=== PATIENT | male | born 1980 | race Caucasian/White ===

== ENCOUNTER 2017-11-10 09:02 | Observation (INO) ==
[2017-11-10] MEDS ORDERED: Aspirin 81 MG TAB.CHEW PO ONE (09:08)
--- NOTE | 2017-11-10 09:12 | Emergency Department Note ---
Disposition Clinical Impression: Chest pain Qualifiers: Chest pain type: unspecified Qualified Code(s): R07.9 - Chest pain, unspecified Disposition: Admitted As Inpatient Condition: Fair Referrals: Brigid Middleton MD [Primary Care Provider] - Forms: ED Satisfaction Letter Time of Disposition: 11:32 Chest Pain HPI - General Chief Complaint: ED Chest Pain Stated Complaint: chest pain Time Seen by Provider: 11/10/17 09:07 Source: patient Mode of arrival: ambulatory Limitations: no limitations Vital Signs Reviewed: Yes Nursing Notes Reviewed: Yes - History of Present Illness HPI Narrative: 37-year-old diabetic who is noncompliant with his medicines is supposed to be on metformin lisinopril does not take any of them comes in with acute onset of left groin pain leg pain and also complaining of chest pain. Patient states he has never had a heart attack. Risk factors include hypertension diabetes family history Pt complaint: chest pain Onset (ago): [employer] Duration: constant Onset: during rest Pain Location: substernal Severity: moderate Quality: tightness, aching, heaviness Pain Radiation: none Improves with: nothing Worsens with: nothing Associated symptoms: Reports: fever Treatments prior to arrival chest pain: none - Related Data Previous Rx's Medication Instructions Recorded Azithromycin [Zithromax Tri-Dean] 1,000 mg PO ONCE #2 tablet 07/26/15 Azithromycin [Zithromax] 2,000 mg PO ONCE 1 Days tablet 08/17/16 metroNIDAZOLE [Flagyl] 2,000 mg PO ONCE #1 tablet 08/17/16 Amoxicillin 875 mg PO BID #20 tablet 06/03/17 Cetirizine HCl [Zyrtec] 10 mg PO DAILY #4 capsule 06/03/17 Fluticasone Propionate Nasal 1 spray NS DAILY #1 bottle 06/03/17 [Flonase] Allergies Allergy/AdvReac Type Severity Reaction Status Date / Time No Known Allergies Allergy Verified 07/26/15 20:22 All systems ED: reviewed and negative except as stated. Constitutional: Denies: fever, chills, weakness, weight change Eyes: Denies: eye pain, eye discharge, vision change ENT ED: Denies: ear pain, throat pain, dental pain, hearing loss, epistaxis, congestion, dysphagia Cardiovascular: Reports: chest pain. Denies: palpitations, dyspnea on exertion , edema, syncope Respiratory: Denies: cough, dyspnea, wheezes, hemoptysis, stridor Gastrointestinal: Denies: abdominal pain, nausea, vomiting, diarrhea, constipation, hematemesis, melena, hematochezia Genitourinary: Denies: urgency, dysuria, frequency, hematuria Musculoskeletal: Reports: arthralgia. Denies: back pain, neck pain, myalgia Integumentary: Denies: rash, abrasion, lesions Neurological: Denies: headache, weakness, numbness, paresthesias, confusion, abnormal gait, vertigo Psychiatric: Denies: anxiety, depression, suicidal thoughts, homicidal thoughts , auditory hallucinations, visual hallucinations Endocrine: Denies: fatigue Hematological/Lymphatic: Denies: easy bleeding, easy bruising Allergic/Immunologic: Denies: facial swelling, urticaria Chest Pain PMH - Past Medical History Medical history: Reports: non-contributory, diabetes - Social History Smoking Status: Never smoker Alcohol use: Reports: occasionally Physical Exam - General Limitations: no limitations General appearance: alert, in no apparent distress - Head Head exam: atraumatic, normocephalic, normal inspection - Eye Eye exam: Present: normal appearance, PERRL, EOMI - ENT ENT exam: normal exam, normal oropharynx, mucous membranes moist - Neck Neck exam: Present: normal inspection, full ROM, trachea midline - Chest Chest inspection: Present: normal inspection, symmetric chest wall rise - Respiratory Respiratory exam: Present: normal lung sounds bilaterally - Cardiovascular Cardiovascular exam: Present: regular rate, normal rhythm, normal heart sounds - Abdominal Exam Abdominal exam: Present: soft, Non-Tender. Absent: tenderness, distention, guarding, rebound, rigidity - Expanded Lower Extremity Exam Hip/Pelvis exam: Present: tenderness (Left groin no lety herniation appreciated ) Foot/toe exam: Present: other (Good distal pulses extremity is warm to touch.) - Neurological Exam Neurological exam: Present: alert, oriented X3 - Psychiatric Psychiatric exam: Present: normal affect, normal mood - Skin Skin exam: Present: warm, dry, intact, normal color Course - Reevaluation(s) Reevaluation #1: 37-year-old diabetic noncompliant comes in complaining of chest pain patient will be admitted, also had a fever of 102 chest x-rays negative flu swab is negative lactates negative. Time: 11:31 - Consultations Consultation #1: Discussed with Time: 11:28 Vital Signs Temperature 102.4 F H 11/10/17 09:05 Pulse Rate 111 11/10/17 09:05 Respiratory Rate 17 11/10/17 09:05 Blood Pressure 106/92 11/10/17 09:05 O2 Sat by Pulse Oximetry 94 11/10/17 09:05 Temperature 99.8 F H 11/10/17 10:26 Pulse Rate 99 11/10/17 10:26 Respiratory Rate 18 11/10/17 10:26 Blood Pressure 140/71 11/10/17 10:26 O2 Sat by Pulse Oximetry 94 11/10/17 10:26 Oxygen Delivery Oxygen Delivery Nasal Cannula Chest Pain - Lab Data Lab results reviewed: Yes I reviewed the patient's lab results. Result diagrams: 11/10/17 09:24 11/10/17 09:24 Lab Results 11/10/17 11/10/17 11/10/17 Range/Units 09:24 09:24 09:24 WBC 11.9 H (4.3-11.1) K/mcL RBC 5.05 (4.19-5.50) M/mcL Hgb 14.0 (12.9-16.9) g/dL Hct 39.7 (37.5-50.1) % MCV 78.6 L (83.0-100.0) fL MCH 27.7 L (28.0-33.3) pg MCHC 35.3 (31.6-35.5) g/dL RDW 14.6 H (11.5-14.5) % Plt Count 285 (140-400) K/mcL MPV 10.0 (9.4-12.4) fL Immature Gran % 0.8 (0-4) % Seg Neutrophils % 85.2 % Lymphocytes % 7.3 % Monocytes % 5.5 % Eosinophils % 0.9 % Basophils % 0.3 % Neutrophils # 10.1 H (1.6-8.9) K/mcL Lymphocytes # 0.9 (0.6-4.6) K/mcL Monocytes # 0.7 (0.0-1.3) K/mcL Eosinophils # 0.1 (0.0-0.6) K/mcL Basophils # 0.0 (0.0-0.2) K/mcL PT 11.8 (9.4-12.1) Seconds INR 1.1 APTT 30.0 (26.0-36.0) Seconds D-Dimer 295 (0-500) ng/mLFEU Sodium 126 L (136-145) mEq/L Potassium 4.2 (3.5-5.1) mEq/L Chloride 98 (98-107) mEq/L Carbon Dioxide 21 L (23-29) mEq/L BUN 12 (6-20) mg/dL Creatinine 0.79 (0.70-1.30) mg/dL Est GFR ( Amer) > 60 (> 60) Est GFR (Non-Af Amer) > 60 (> 60) BUN/Creatinine Ratio 15 (6-26) Glucose 320 H (70-105) mg/dL Calculated Osmolality 274 L (280-300) Lactic Acid (0.5-2.2) mmol/L Calcium 8.4 L (8.6-10.3) mg/dL Troponin I < 0.03 (< 0.04) ng/mL Urine Color (Yellow) Urine Clarity (Clear) Urine pH (5.0-8.0) pH Units Ur Specific Brick (1.010-1.025) Urine Protein (Neg-Trace) mg/dL Urine Glucose (UA) (Normal) mg/dL Urine Ketones (Negative) mg/dL Urine Blood (Negative) Urine Nitrite (Negative) Urine Bilirubin (Negative) Urine Urobilinogen (Normal) mg/dL Ur Leukocyte Esterase (Negative) Urine Microscopic RBC (0-3) per hpf Urine Microscopic WBC (0-3) per hpf Ur Squamous Epith Cells (None-Few) per lpf Urine Bacteria (None-Few) per hpf Hyaline Casts (None-Few) per lpf Ur Culture Indicated? (NO) 11/10/17 11/10/17 Range/Units 09:24 10:40 WBC (4.3-11.1) K/mcL RBC (4.19-5.50) M/mcL Hgb (12.9-16.9) g/dL Hct (37.5-50.1) % MCV (83.0-100.0) fL MCH (28.0-33.3) pg MCHC (31.6-35.5) g/dL RDW (11.5-14.5) % Plt Count (140-400) K/mcL MPV (9.4-12.4) fL Immature Gran % (0-4) % Seg Neutrophils % % Lymphocytes % % Monocytes % % Eosinophils % % Basophils % % Neutrophils # (1.6-8.9) K/mcL Lymphocytes # (0.6-4.6) K/mcL Monocytes # (0.0-1.3) K/mcL Eosinophils # (0.0-0.6) K/mcL Basophils # (0.0-0.2) K/mcL PT (9.4-12.1) Seconds INR APTT (26.0-36.0) Seconds D-Dimer (0-500) ng/mLFEU Sodium (136-145) mEq/L Potassium (3.5-5.1) mEq/L Chloride (98-107) mEq/L Carbon Dioxide (23-29) mEq/L BUN (6-20) mg/dL Creatinine (0.70-1.30) mg/dL Est GFR ( Amer) (> 60) Est GFR (Non-Af Amer) (> 60) BUN/Creatinine Ratio (6-26) Glucose (70-105) mg/dL Calculated Osmolality (280-300) Lactic Acid 1.6 (0.5-2.2) mmol/L Calcium (8.6-10.3) mg/dL Troponin I (< 0.04) ng/mL Urine Color Yellow (Yellow) Urine Clarity Clear (Clear) Urine pH 6.5 (5.0-8.0) pH Units Ur Specific Brick > 1.030 H (1.010-1.025) Urine Protein Trace (Neg-Trace) mg/dL Urine Glucose (UA) >=1000 H (Normal) mg/dL Urine Ketones 15 H (Negative) mg/dL Urine Blood Negative (Negative) Urine Nitrite Negative (Negative) Urine Bilirubin Negative (Negative) Urine Urobilinogen Normal (Normal) mg/dL Ur Leukocyte Esterase Negative (Negative) Urine Microscopic RBC 0-3 (0-3) per hpf Urine Microscopic WBC 0-3 (0-3) per hpf Ur Squamous Epith Cells Few (None-Few) per lpf Urine Bacteria None Seen (None-Few) per hpf Hyaline Casts None Seen (None-Few) per lpf Ur Culture Indicated? NO (NO) - EKG Data EKG attestation: Yes I reviewed and interpreted this EKG. EKG shows normal: sinus rhythm Rate: tachycardia Rhythm: NSR [place]/QRS: RBBB Interpretation: no acute changes Heart Score - Score History: Moderately Suspicious EKG: Non Specific repolarisation Disturbance Age: Less than 45 Risk Factors: Equal/Greater than 3 risk factor or history of atherosclerotic disease Troponin: Less than normal limit HEART Score Total: 4
[2017-11-10] MEDS ORDERED: Acetaminophen 325 MG TABLET PO ONE (09:14)
[2017-11-10] MEDS ORDERED: 0.9 % Sodium Chloride 1,000 ML IVC ONE (09:15)
[2017-11-10 09:42] LABS: Basophils % 0.3 %; Eosinophils # 0.1 K/mcL (0.0-0.6); Eosinophils % 0.9 %; Hematocrit 39.7 % (37.5-50.1); Immature Granulocytes % 0.8 % (0-4); Lymphocytes # 0.9 K/mcL (0.6-4.6); Lymphocytes % 7.3 %; Mean Corpuscular HGB Conc 35.3 g/dL (31.6-35.5); Mean Corpuscular Hemoglobin 27.7 pg (28.0-33.3); Mean Corpuscular Volume 78.6 fL (83.0-100.0); Monocytes # 0.7 K/mcL (0.0-1.3); Monocytes % 5.5 %; Neutrophils # 10.1 K/mcL (1.6-8.9); Platelet Count 285 K/mcL (140-400); Red Blood Count 5.05 M/mcL (4.19-5.50); Red Cell Distribution Width 14.6 % (11.5-14.5); Segmented Neutrophils % 85.2 %
[2017-11-10 09:48] LABS: INR 1.1; Prothrombin Time 11.8 Seconds (9.4-12.1)
[2017-11-10 10:07] LABS: BUN/Creatinine Ratio 15 (6-26); Blood Urea Nitrogen 12 mg/dL (6-20); Calcium 8.4 mg/dL (8.6-10.3); Carbon Dioxide 21 mEq/L (23-29); Chloride 98 mEq/L (98-107); Glucose 320 mg/dL (70-105); Osmolality,Calculated 274 (280-300); Potassium 4.2 mEq/L (3.5-5.1); Sodium 126 mEq/L (136-145); Troponin I < 0.03 ng/mL (< 0.04); eGFR For African Americans > 60 (> 60); eGFR For Non-African Americans > 60 (> 60)
[2017-11-10 10:52] LABS: Bilirubin,Urine Negative (Negative); Blood,Urine Negative (Negative); Clarity,Urine Clear (Clear); Color,Urine Yellow (Yellow); Glucose,Urine (UA) >=1000 mg/dL (Normal); Ketones,Urine 15 mg/dL (Negative); Leukocyte Esterase,Urine Negative (Negative); Nitrite,Urine Negative (Negative); PH,Urine 6.5 pH Units (5.0-8.0); Protein,Urine Trace mg/dL (Neg-Trace); Specific Gravity,Urine > 1.030 (1.010-1.025); Urobilinogen,Urine Normal (Normal)
[2017-11-10 10:54] LABS: Bacteria,Urine None Seen per hpf (None-Few); Hyaline Casts,Urine None Seen per lpf (None-Few); RBC,Urine 0-3 per hpf (0-3); Squamous Epithelial Cell,Urine Few per lpf (None-Few); WBC,Urine 0-3 per hpf (0-3)
[2017-11-10] MEDS ORDERED: Naloxone 0.4 MG/ML INJ IVP PRN (14:16)
[2017-11-10] MEDS ORDERED: *HR* Dextrose 50 % in Water (Syg) 50 ML SYRINGE IVP PRN (14:19)
[2017-11-10] MEDS ORDERED: D5% in Water 1,000 ML IVC PRN (14:19)
[2017-11-10] MEDS ORDERED: Dextrose Gel 15 GM/37.5 ML TUBE PO PRN ×2 (14:19)
--- NOTE | 2017-11-10 14:27 | Internal Med History&Physical ---
<Jimi Hernandez - Last Filed: 11/10/17 14:39> Date of Encounter: 11/10/17 Time of Encounter: 14:23 Internal Medicine - H&P: HPI Admitted From: Home Plans for Post Hospital Care: Home History of present illness: Mr. Marroquin is a 37 year old male with past medical history of hypertension, diabetes, and hyperlipidemia presented with acute onset of chest pain. patient reported that he has been having dry cough in the last 2-3 days. This morning when he woke up he failed left groin and the left chest pain. The chest pain was described as left-sided substernal, not radiated to the arm or face, 3/10, exacerbated by cough. He did not try Nitrol. He attributed chest pain to his cough and stated that he does not have any pain right now. He denies history of coronary artery disease and never had heart attack in the past. He denies shortness of breath, palpitation, or syncope. He has no wheezing, hemoptysis, or sputum production. At the ED, his vital signs were stable. Labs were unremarkable except elevated blood glucose. Chest x-ray no acute change. EKG no acute ST-T change. Due to his cardiovascular risk factors, he will be admitted for observation. Past Med Surg Social Fam HX - Past Medical History Medical history: diabetes, hypertension Psychiatric history: no psych history - Past Surgical History Surgical History: cholecystectomy - Social History Smoking Status: Never smoker Smokeless Tobacco Status: No Alcohol use: occasionally Drug use: none - Family History Father Living Status: Hx Family Cardiac Disorders: Yes Hx Family Endocrine Disorder: Yes Internal Medicine - H&P: Meds No Known Home Drugs 11/10/17 [History] 3 Allergy/AdvReac Type Severity Reaction Status Date / Time No Known Allergies Allergy Verified 07/26/15 20:22 All Systems PM: A 10-system review of systems was performed and is negative for pertinent findings except as documented above in the HPI. Review of systems: REVIEW OF SYSTEMS: CONSTITUTIONAL: No weight loss, fever, chills, weakness or fatigue. HEENT: Eyes: No visual loss, blurred vision, double vision or yellow sclerae. Ears, Nose, Throat: No hearing loss, sneezing, congestion, runny nose or sore throat. SKIN: No rash or itching. CARDIOVASCULAR: see HPI. RESPIRATORY: No shortness of breath, cough or sputum. GASTROINTESTINAL: No anorexia, nausea, vomiting or diarrhea. No abdominal pain or blood. GENITOURINARY: No dysuria, urgency, or frequency. NEUROLOGICAL: No headache, dizziness, syncope, paralysis, ataxia, numbness or tingling in the extremities. No change in bowel or bladder control. MUSCULOSKELETAL: No muscle, back pain, joint pain or stiffness. HEMATOLOGIC: No anemia, bleeding or bruising. LYMPHATICS: No enlarged nodes. No history of splenectomy. PSYCHIATRIC: No history of depression or anxiety. ENDOCRINOLOGIC: No reports of sweating, cold or heat intolerance. No polyuria or polydipsia. - Constitutional Vitals: Temp Pulse Resp BP Pulse Ox 98.7 F 92 18 142/83 94 11/10/17 12:36 11/10/17 12:36 11/10/17 12:36 11/10/17 12:36 11/10/17 12:36 General appearance: Present: A&O X 3 Exam: PHYSICAL EXAMINATION: GENERAL APPEARANCE: The patient is alert, oriented and in no acute distress. HEENT: Head is normocephalic. The sinuses are nontender. Pupils are equal and reactive. The nares are patent. Oropharynx clear without lesions. NECK: Supple without lymphadenopathy. HEART: Regular rate and rhythm. LUNGS: No crackles or wheezes are heard. ABDOMEN: Soft, nontender, nondistended with good bowel sounds heard. Inguinal area is normal. EXTREMITIES: Without cyanosis, clubbing or edema. NEUROLOGICAL: Gross nonfocal. SKIN: Warm and dry without any rash. Internal Med - H&P Results - Labs CBC & Chem 7: 11/10/17 09:24 11/10/17 09:24 - Assessment and plan (1) Chest pain Current Visit: Yes Status: Acute Assessment and plan: 37-year-old man male with cardiovascular risk factors including hypertension, hyperlipidemia, and diabetes presented with left-sided substernal chest pain. - Troponin negative 1, EKG no acute ST-T change. - We will cycle troponin, EKG as needed. - Due to her risk factors, stress nuclear test in the morning. Qualifiers: Chest pain type: unspecified Qualified Code(s): R07.9 - Chest pain, unspecified (2) Diabetes mellitus Current Visit: No Status: Chronic Assessment and plan: - Hold metformin, continue insulin sliding scale. Qualifiers: Diabetes mellitus type: type 2 Diabetes mellitus terminologist insulin use: without fdc use Diabetes mellitus complication status: without complication Qualified Code(s): E11.9 - Type 2 diabetes mellitus without complications (3) HTN (hypertension) Current Visit: No Status: Chronic Assessment and plan: - BP controlled, continue home medication. Qualifiers: Hypertension type: essential hypertension Qualified Code(s): I10 - Essential (primary) hypertension (4) Hyperlipidemia Current Visit: No Status: Chronic Assessment and plan: Will repeat lipid panel in the morning, continue home medication. Qualifiers: Hyperlipidemia type: pure hypercholesterolemia Qualified Code(s): E78.00 - Pure hypercholesterolemia, unspecified; E78.0 - Pure hypercholesterolemia - Time Spent With Patient Total time spent is greater than 50% in coordination of care (as documented) at patient's floor/unit and/or counseling patient: Greater than 35 minutes <Ed Powell - Last Filed: 11/10/17 16:16> Date of Encounter: 11/10/17 Time of Encounter: 16:07 - Constitutional Constitutional: no chills, no fever(s) - Cardiovascular Cardiovascular ROS IM: chest pain, dyspnea - Respiratory Respiratory: cough, dyspnea - Constitutional Vitals: Temp Pulse Resp BP Pulse Ox 98.4 F 103 18 131/77 95 11/10/17 16:05 11/10/17 16:05 11/10/17 16:05 11/10/17 16:05 11/10/17 16:05 General appearance: Present: A&O X 3, no acute distress - Head Head exam: Present: atraumatic - Eye Eye exam: Present: PERRL. Absent: scleral icterus - Respiratory Respiratory exam: Present: CTAB. Absent: chest wall tenderness, rales, respiratory distress, rhonchi, wheezes - Cardiovascular Cardiovascular exam: Present: RRR, +S1, +S2. Absent: diastolic murmur, systolic murmur - GI/Abdominal GI/Abdominal exam: Present: soft. Absent: hepatomegaly, splenomegaly, tenderness - Extremities Exam Extremities exam: Present: full ROM. Absent: calf tenderness - Back Exam Back exam: Absent: CVA tenderness (L), CVA tenderness (R) Internal Med - H&P Results - Labs CBC & Chem 7: 11/10/17 09:24 11/10/17 09:24 Labs: Cardiac Enzymes 11/10/17 Range/Units 14:36 Troponin I < 0.03 (< 0.04) ng/mL - Attending Attestation I discussed the patient [id number], past medical history, review of systems, lab data , and exam findings with Rodrigo Hernandez CNP. I then saw patient independently. Patient reiterates the above history but is chest pain-free presently. He attributes his chest pains to coughing paroxysms he's had recently due to a viral bronchitis type picture. However, the chest pain he described was more of a tightness and heaviness in his chest. He certainly has cardiac risk factors, and these include diabetes, hypertension, and hyperlipidemia. He does not smoke and never has smoked. Given his risk factors and presenting symptoms , I feel it is imperative to proceed with stress testing in the morning if his troponins and EKGs remained negative. He will also need close follow-up with his hyponatremia. It appears this is chronic. He does not take diuretics and he does not drink alcohol but once or twice per year. We will repeat chemistries in the morning and proceed from there. Other than my comments above and documented physical exam findings, I agree with Rodrigo Hernandez's assessment and plan. - Assessment and plan (1) Chest pain Current Visit: Yes Status: Acute Qualifiers: Chest pain type: unspecified Qualified Code(s): R07.9 - Chest pain, unspecified (2) Diabetes mellitus Current Visit: No Status: Chronic Qualifiers: Diabetes mellitus type: type 2 Diabetes mellitus fdc insulin use: without terminologist use Diabetes mellitus complication status: without complication Qualified Code(s): E11.9 - Type 2 diabetes mellitus without complications (3) HTN (hypertension) Current Visit: No Status: Chronic Qualifiers: Hypertension type: essential hypertension Qualified Code(s): I10 - Essential (primary) hypertension (4) Hyperlipidemia Current Visit: No Status: Chronic Qualifiers: Hyperlipidemia type: pure hypercholesterolemia Qualified Code(s): E78.00 - Pure hypercholesterolemia, unspecified; E78.0 - Pure hypercholesterolemia - Time Spent With Patient Total time spent is greater than 50% in coordination of care (as documented) at patient's floor/unit and/or counseling patient:
[2017-11-10] MEDS: 0.9 % Sodium Chloride 1,000 ML IVC SCH (15:15)
[2017-11-10] MEDS: Benzonatate 100 MG CAPSULE PO PRN ×2 (15:15→23:15)
[2017-11-10] MEDS: Acetaminophen 325 MG TABLET PO PRN ×2 (15:17→21:47)
[2017-11-10] MEDS: Insulin LISPRO 300 UNITS/3 ML VIAL SQ SCH ×2 (16:44→21:47)
[2017-11-10] MEDS: *HR* Heparin 5,000 UNIT/ML VIAL SQ SCH (16:45)
[2017-11-10] MEDS: traMADol 50 MG TABLET PO PRN (18:14)
[2017-11-11 04:15] LABS: Basophils # 0.1 K/mcL (0.0-0.2); Basophils % 0.8 %; Eosinophils # 0.3 K/mcL (0.0-0.6); Eosinophils % 3.7 %; Hematocrit 36.5 % (37.5-50.1); Immature Granulocytes % 0.8 % (0-4); Lymphocytes # 1.6 K/mcL (0.6-4.6); Mean Corpuscular Hemoglobin 26.8 pg (28.0-33.3); Mean Platelet Volume 10.1 fL (9.4-12.4); Monocytes # 0.9 K/mcL (0.0-1.3); Monocytes % 11.1 %; Neutrophils # 4.9 K/mcL (1.6-8.9); Platelet Count 217 K/mcL (140-400); Red Blood Count 4.62 M/mcL (4.19-5.50); Red Cell Distribution Width 15.2 % (11.5-14.5); Segmented Neutrophils % 62.6 %
[2017-11-11 04:30] LABS: BUN/Creatinine Ratio 15 (6-26); Blood Urea Nitrogen 10 mg/dL (6-20); Calcium 8.5 mg/dL (8.6-10.3); Carbon Dioxide 24 mEq/L (23-29); Chloride 100 mEq/L (98-107); Glucose 279 mg/dL (70-105); Osmolality,Calculated 279 (280-300); Potassium 3.9 mEq/L (3.5-5.1); Sodium 130 mEq/L (136-145); eGFR For African Americans > 60 (> 60); eGFR For Non-African Americans > 60 (> 60)
[2017-11-11 04:33] LABS: Hemoglobin 12.4 g/dL (12.9-16.9)
[2017-11-11] MEDS: 0.9 % Sodium Chloride 1,000 ML IVC SCH (04:41)
[2017-11-11] MEDS: *HR* Heparin 5,000 UNIT/ML VIAL SQ SCH ×2 (05:34→17:04)
[2017-11-11] MEDS ORDERED: Regadenoson 0.4 MG/5 ML SYRINGE IVP ONE (05:49)
[2017-11-11 08:25] LABS: Chol/HDL Ratio 5.7 (0-4.9); Cholesterol 125 mg/dL (< 200); HDL Cholesterol 22 mg/dL (40-59); Triglycerides 743 mg/dL (< 150)
[2017-11-11] MEDS ORDERED: Promethazine/Codeine Oral Sryup 5 ML UDC PO ONE (09:24)
[2017-11-11] MEDS: Aspirin 81 MG TAB.CHEW PO SCH (09:41)
[2017-11-11] MEDS: Insulin LISPRO 300 UNITS/3 ML VIAL SQ SCH ×4 (09:41→20:08)
[2017-11-11 14:59] LABS: Adenovirus Not Detected (Not Detect); Bordetella Pertussis Not Detected (Not Detect); Chlamydophila pneumoniae Not Detected (Not Detect); Coronavirus 229E Not Detected (Not Detect); Coronavirus HKU1 Not Detected (Not Detect); Coronavirus NL63 Not Detected (Not Detect); Coronavirus OC43 Not Detected (Not Detect); Human Metapneumovirus Not Detected (Not Detect); Human Rhinovirus/Enterovirus Not Detected (Not Detect); Influenza A Subtype 2009 H1 Not Detected (Not Detect); Influenza A Untypeable Not Detected (Not Detect); Influenza B Not Detected (Not Detect); Mycoplasma pneumoniae Not Detected (Not Detect); Parainfluenza Virus 1 Not Detected (Not Detect); Parainfluenza Virus 2 Not Detected (Not Detect); Parainfluenza Virus 3 Not Detected (Not Detect); Parainfluenza Virus 4 Not Detected (Not Detect); Respiratory Syncytial Virus Not Detected (Not Detect)
--- NOTE | 2017-11-11 16:24 | Internal Med Progress Note ---
Date of Encounter: 11/11/17 Time of Encounter: 09:15 - Assessment and plan (1) Chest pain Current Visit: Yes Status: Acute Assessment and plan: 37-year-old man male with cardiovascular risk factors including hypertension, hyperlipidemia, and diabetes presented with left-sided chest pain. Troponin negative 3, EKG normal sinus rhythm with no ST changes. Patient is a 2 day stress test, will complete day to tomorrow. Patient with risk factors of obesity, hypertension, medication noncompliance. Continue telemetry Stress test pending Pain management Consider cardiology consult based on stress test findings Qualifiers: Chest pain type: unspecified Qualified Code(s): R07.9 - Chest pain, unspecified (2) Diabetes mellitus Current Visit: No Status: Chronic Assessment and plan: -Sliding scale insulin, Accu-Cheks before meals at bedtime, diabetic diet. No A1c to trend. Will order for morning, hopefully will be completed. Qualifiers: Diabetes mellitus type: type 2 Diabetes mellitus header up insulin use: without fci use Diabetes mellitus complication status: without complication Qualified Code(s): E11.9 - Type 2 diabetes mellitus without complications (3) HTN (hypertension) Current Visit: No Status: Chronic Assessment and plan: Blood pressure controlled in the inpatient setting. Patient not adherent with home medications. He was to be taking lisinopril, he has not been taking. We will restart low-dose, monitor, some patient home with prescription. Qualifiers: Hypertension type: essential hypertension Qualified Code(s): I10 - Essential (primary) hypertension (4) Hyperlipidemia Current Visit: Yes Status: Chronic Assessment and plan: Lipid panel completed this morning. Triglycerides are 743, cholesterol within normal limits, LDL and VLDL were not completed due to elevation of triglycerides. We will start patient on a statin. Simvastatin 20 mg by mouth at bedtime. Qualifiers: Hyperlipidemia type: pure hypercholesterolemia Qualified Code(s): E78.00 - Pure hypercholesterolemia, unspecified; E78.0 - Pure hypercholesterolemia (5) Morbid obesity Current Visit: Yes Status: Acute Assessment and plan: Chronic. We have discussed lifestyle modifications. Patient verbalized understanding. Could benefit from increased education and encouragement. - Time Spent With Patient Total time spent is greater than 50% in coordination of care (as documented) at patient's floor/unit and/or counseling patient: less than 15 minutes - Subjective Interval history: Patient was seen and assessed at bedside at 9:15 AM. Fiance at bedside. All questions were answered. Patient reports intermittent chest pain is not reproducible. Patient reports feeling ill and having a cough for 2 weeks, it has become worse over the last 4 days. The cough is nonproductive and hacking. Patient reports upper abdominal and rib pain since he has been coughing. Patient is going to have a 2 day stress test. He is aware, denies any additional questions or concerns. He denies headache, blurred vision, nausea or vomiting. He denies abdominal, peripheral edema. - Constitutional Vitals: Temp Pulse Resp BP Pulse Ox 98.8 F 99 14 152/77 95 11/11/17 15:38 11/11/17 15:38 11/11/17 15:38 11/11/17 15:38 11/11/17 15:38 General appearance: Present: cooperative, A&O X 3, morbidly obese, pleasant, no acute distress, answers questions appropriately - Head Head exam: Present: atraumatic, normal inspection, normocephalic - Eye Eye exam: Present: normal appearance, conjuntiva pink, sclera anicteric - Neck Neck exam general surgery: Present: supple, trachea midline. Absent: lymphadenopathy - Respiratory Respiratory exam: Present: CTAB. Absent: accessory muscle use, rales, rhonchi, wheezes - Cardiovascular Cardiovascular exam: Present: RRR, +S1, +S2. Absent: diastolic murmur, gallop, rubs, systolic murmur - GI/Abdominal GI/Abdominal exam: Present: normal bowel sounds, soft, no peritoneal signs. Absent: distended, hepatomegaly, tenderness - Extremities Exam Extremities exam: Present: normal capillary refill, normal inspection, tenderness, warm, radial pulses palpable and symmetrical. Absent: calf tenderness, cyanotic, pedal edema - Neurological Exam Neurological exam: Present: alert, oriented X3, no focal deficits. Absent: facial droop, speech deficit - Skin Skin exam: Present: dry, intact, normal color, warm. Absent: rash Internal Medicine: Result - Labs CBC & Chem 7: 11/11/17 03:03 11/11/17 03:03 Labs: Short CBC 11/11/17 Range/Units 03:03 WBC 7.8 (4.3-11.1) K/mcL Hgb 12.4 L D (12.9-16.9) g/dL Hct 36.5 L (37.5-50.1) % Plt Count 217 (140-400) K/mcL Neutrophils # 4.9 (1.6-8.9) K/mcL BMP 11/11/17 03:03 Sodium 130 L Potassium 3.9 Chloride 100 Carbon Dioxide 24 BUN 10 Creatinine 0.65 L Glucose 279 H Calcium 8.5 L Cardiac Enzymes 11/10/17 11/11/17 Range/Units 21:25 03:03 Troponin I < 0.03 < 0.03 (< 0.04) ng/mL - ABG Interpretation ABG results: PT/INR, D-dimer PT 11.8 Seconds (9.4-12.1) 11/10/17 09:24 D-Dimer 295 ng/mLFEU (0-500) 11/10/17 09:24 Consult Discharge Plan - Plan Referrals: Brigid Middleton MD [Primary Care Provider] - 11/25/17 9:15 am
[2017-11-11] MEDS: Benzonatate 100 MG CAPSULE PO PRN (20:13)
[2017-11-11] MEDS: traMADol 50 MG TABLET PO PRN (20:17)
[2017-11-12] MEDS: *HR* Heparin 5,000 UNIT/ML VIAL SQ SCH ×2 (05:12→16:18)
[2017-11-12 05:45] LABS: Basophils # 0.1 K/mcL (0.0-0.2); Basophils % 0.9 %; Eosinophils # 0.3 K/mcL (0.0-0.6); Eosinophils % 3.7 %; Hemoglobin 13.1 g/dL (12.9-16.9); Immature Granulocytes % 0.9 % (0-4); Lymphocytes # 1.6 K/mcL (0.6-4.6); Lymphocytes % 20.2 %; Mean Corpuscular HGB Conc 34.5 g/dL (31.6-35.5); Mean Corpuscular Hemoglobin 27.2 pg (28.0-33.3); Mean Corpuscular Volume 78.8 fL (83.0-100.0); Mean Platelet Volume 9.6 fL (9.4-12.4); Monocytes # 0.8 K/mcL (0.0-1.3); Monocytes % 10.1 %; Neutrophils # 5.2 K/mcL (1.6-8.9); Platelet Count 243 K/mcL (140-400); Red Blood Count 4.82 M/mcL (4.19-5.50); Red Cell Distribution Width 15.4 % (11.5-14.5); Segmented Neutrophils % 64.2 %
[2017-11-12 06:07] LABS: BUN/Creatinine Ratio 17 (6-26); Blood Urea Nitrogen 10 mg/dL (6-20); Calcium 8.6 mg/dL (8.6-10.3); Carbon Dioxide 24 mEq/L (23-29); Chloride 99 mEq/L (98-107); Glucose 265 mg/dL (70-105); Osmolality,Calculated 280 (280-300); Sodium 131 mEq/L (136-145); eGFR For African Americans > 60 (> 60); eGFR For Non-African Americans > 60 (> 60)
[2017-11-12] MEDS: Aspirin 81 MG TAB.CHEW PO SCH (09:01)
[2017-11-12] MEDS: Insulin LISPRO 300 UNITS/3 ML VIAL SQ SCH ×3 (09:01→16:19)
[2017-11-12 09:37] LABS: Estimated Average Glucose 232 mg/dl; Hemoglobin A1C 9.7 %
[2017-11-12] MEDS: Acetaminophen 325 MG TABLET PO PRN (10:14)
--- NOTE | 2017-11-12 13:56 | Internal Med Progress Note ---
Date of Encounter: 11/12/17 Time of Encounter: 09:15 - Assessment and plan (1) Chest pain Current Visit: Yes Status: Acute Assessment and plan: Pt denies chest pain today. Troponin negative 3, EKG normal sinus rhythm with no ST changes. Stress test showed small sized,mild intensity, reversible inferior perfusion defect possibly due to ischemia. Patient with risk factors of obesity, hypertension, medication noncompliance. Continue telemetry Cardiology consulted Pain management Qualifiers: Chest pain type: unspecified Qualified Code(s): R07.9 - Chest pain, unspecified (2) Diabetes mellitus Current Visit: Yes Status: Chronic Assessment and plan: -Sliding scale insulin, Accu-Cheks before meals at bedtime, diabetic diet. A1c 9.7%. Pt would benefit from diabetes education and lifestyle modifications. Qualifiers: Diabetes mellitus type: type 2 Diabetes mellitus longwall headgate operator insulin use: without longwall headgate operator use Diabetes mellitus complication status: without complication Qualified Code(s): E11.9 - Type 2 diabetes mellitus without complications (3) HTN (hypertension) Current Visit: Yes Status: Chronic Assessment and plan: Blood pressure remains well controlled in the inpatient setting. Patient not adherent with home medications. He was to be taking lisinopril, he has not been taking. We will restart low-dose, monitor, some patient home with prescription.We have discussed the importance of lifestyle modifications as well as adherence to medication regimen. Qualifiers: Hypertension type: essential hypertension Qualified Code(s): I10 - Essential (primary) hypertension (4) Hyperlipidemia Current Visit: Yes Status: Chronic Assessment and plan: Lipid panel completed this morning. Triglycerides are 743, cholesterol within normal limits, LDL and VLDL were not completed due to elevation of triglycerides. We will start patient on a statin. Simvastatin 20 mg by mouth at bedtime. Again , have encourged him to take as directed. Qualifiers: Hyperlipidemia type: pure hypercholesterolemia Qualified Code(s): E78.00 - Pure hypercholesterolemia, unspecified; E78.0 - Pure hypercholesterolemia (5) Morbid obesity Current Visit: Yes Status: Acute Assessment and plan: Chronic. We have discussed lifestyle modifications. Patient verbalized understanding. Could benefit from increased education and encouragement. - Time Spent With Patient Total time spent is greater than 50% in coordination of care (as documented) at patient's floor/unit and/or counseling patient: less than 15 minutes - Subjective Interval history: Patient was seen and assessed at bedside at 9:15 AM. Patient denies chest pain today. He denies headache, blurred vision, nausea or vomiting. He denies abdominal, peripheral edema. We discussed lifestyle modifications this a.m. including diet and exercise. - Constitutional Vitals: Temp Pulse Resp BP Pulse Ox 98.3 F 101 16 140/99 94 11/12/17 10:40 11/12/17 10:40 11/12/17 10:40 11/12/17 10:40 11/12/17 10:40 General appearance: Present: cooperative, A&O X 3, morbidly obese, pleasant, no acute distress, answers questions appropriately - Head Head exam: Present: atraumatic, normocephalic - Eye Eye exam: Present: normal appearance, conjuntiva pink, sclera anicteric Pupils: Present: PERRL - Neck Neck exam general surgery: Present: supple, trachea midline. Absent: lymphadenopathy, tenderness, thyromegaly - Respiratory Respiratory exam: Present: CTAB. Absent: accessory muscle use, rales, rhonchi, wheezes - Cardiovascular Cardiovascular exam: Present: RRR, +S1, +S2. Absent: diastolic murmur, gallop, rubs, systolic murmur - GI/Abdominal GI/Abdominal exam: Present: normal bowel sounds, soft. Absent: distended, hepatomegaly, tenderness - Extremities Exam Extremities exam: Present: normal capillary refill, normal inspection, warm, radial pulses palpable and symmetrical. Absent: calf tenderness, cyanotic, pedal edema - Neurological Exam Neurological exam: Present: alert, oriented X3, pronater drift. Absent: facial droop, speech deficit - Skin Skin exam: Present: dry, intact, normal color, warm. Absent: rash Internal Medicine: Result - Labs CBC & Chem 7: 11/12/17 05:27 11/12/17 05:27 Labs: Short CBC 11/12/17 Range/Units 05:27 WBC 8.1 (4.3-11.1) K/mcL Hgb 13.1 (12.9-16.9) g/dL Hct 38.0 (37.5-50.1) % Plt Count 243 (140-400) K/mcL Neutrophils # 5.2 (1.6-8.9) K/mcL BMP 11/12/17 05:27 Sodium 131 L Potassium 4.0 Chloride 99 Carbon Dioxide 24 BUN 10 Creatinine 0.60 L Glucose 265 H Calcium 8.6 - ABG Interpretation ABG results: PT/INR, D-dimer PT 11.8 Seconds (9.4-12.1) 11/10/17 09:24 D-Dimer 295 ng/mLFEU (0-500) 11/10/17 09:24 Consult Discharge Plan - Plan Referrals: Brigid Middleton MD [Primary Care Provider] - 11/25/17 9:15 am
[2017-11-12 14:27] VITALS: BP 122/86
--- NOTE | 2017-11-12 14:44 | Cardiology Consult Note ---
<Macho Ireland R - Last Filed: 11/12/17 14:41> Date of Encounter: 11/12/17 Time of Encounter: 14:40 Assessment and Plan (1) Chest pain Status: Acute Per Cardiology: Atypical chest pain symptoms occurring at rest. Troponins negative 4. Stress test results noted patient did achieve target heart rate with 10.1 METS. Perfusion imaging showed "small size, mild intensity, reversible inferior perfusion defect possibly due to ischemia". Risk factors include obesity, hypertension, hyperlipidemia, DM 2. I had lengthy discussion with patient today regarding potential further ischemic evaluation, however patient is agreeable to conservative management and outpatient follow-up and reevaluate once cough, sore throat, fever improves. Primary service notified. Anticipate discharge home today. Will review and discuss with Dr. Rodrigo Macedo. Qualifiers: Chest pain type: unspecified Qualified Code(s): R07.9 - Chest pain, unspecified Discussion w patient/family: The assessment and plan as outlined above was discussed with the patient who expressed understanding and agreement. All questions were answered. Thank you for involving us in the care of your patient. Please call with any questions. History of Present Illness Consult date: 11/12/17 Requesting physician: Prudence Tay Consult reason: Abnormal Stress Test Chief complaint: CP with coughing History of present illness: Mr. Marroquin is a 37 year old male with a relevant past medical history of DM 2, HLD, HTN, obesity. Reports diabetic for about 12 years and indicates last A1c around 6.1. Cardiology consult for abnormal stress test results. Patient reports developed left-sided anterior chest wall pain with coughing the past few days. He does report recent fever and sore throat. Denies any nausea , vomiting, diarrhea. Denies any productive sputum. Reports chest pain symptoms occurred with coughing and lasted about 30 seconds to 1 minute. He does report with coughing he felt short of breath. Prior to this event he reports active at gym about 2 days per week performing 30-45 minutes of aerobic activity with no chest pain symptoms. He denies any fatigue dyspnea on exertion. Denies any dizziness, palpitations, any active bleeding or blood loss. Denies any smoking history. Reports questionable history with dad with an KS possibly in the 60s. Past Med Surg Social Fam HX - Past Medical History Attestation: Yes The following information was validated with the patient. Source: patient, old records reviewed Medical history: diabetes, hypertension Psychiatric history: no psych history - Past Surgical History Surgical History: cholecystectomy - Social History Smoking Status: Never smoker Smokeless Tobacco Status: No Alcohol use: occasionally Drug use: none - Family History Father Living Status: Hx Family Cardiac Disorders: Yes Hx Family Endocrine Disorder: Yes Medications and Allergies Aspirin 81 mg PO DAILY #30 tab.chew 11/12/17 [Rx] Lisinopril [Zestril] 5 mg PO DAILY #30 tablet 11/12/17 [Rx] Metformin HCl [Glucophage] 1,000 mg PO BID #60 tablet 11/12/17 [Rx] Simvastatin [Zocor] 20 mg PO HS #30 tablet 11/12/17 [Rx] 3 Allergy/AdvReac Type Severity Reaction Status Date / Time No Known Allergies Allergy Verified 07/26/15 20:22 All Systems Review: The remainder of the systems were reviewed and are negative - EENT Nose, mouth and throat: sore throat - Cardiovascular Cardiovascular: as per HPI, chest pain at rest, dyspnea at rest - Respiratory Respiratory: cough Physical Examination Vital Signs, Last 4 Hours Temp Pulse Resp BP Pulse Ox 11/12/17 14:26 97.6 F 100 16 122/86 100 General: Conversant, No Apparent Distress HEENT: Atraumatic, Normocephaly, Mucus Membranes Moist Neck: No JVD, Normal carotid pulses Cardiac: Reg Rate and Rhythm, Normal S1 and S2, No Murmur Lungs: Normal Breath Sounds, No Wheeze, Rales, Rhonchi Neuro: Alert and responsive, No focal deficits noted Abdomen: Soft, Non-Tender Skin: No rashes noted on visualized skin Musculoskeletal: No Chest Wall Tenderness Extremities: No Clubbing, No Cyanosis, No Edema, Normal Pulses Results 11/12/17 05:27 11/12/17 05:27 Lab Results Laboratory Tests 11/10/17 11/10/17 11/10/17 09:24 09:24 14:36 INR 1.1 D-Dimer 295 Creatinine Est GFR (Non-Af Amer) Troponin I < 0.03 < 0.03 11/10/17 11/11/17 11/12/17 21:25 03:03 05:27 INR D-Dimer Creatinine 0.60 L Est GFR (Non-Af Amer) > 60 Troponin I < 0.03 < 0.03 ITS Impressions Chest X-Ray 11/10/17 09:08 IMPRESSION: No acute process. D/ / Doug Laboy MD / Doug Laboy MD Interpreting Provider: Doug Laboy MD Pelvis X-Ray 11/10/17 09:09 IMPRESSION: No acute osseous abnormality. D/ / Doug Laboy MD / Doug Laboy MD Interpreting Provider: Doug Laboy MD Active Medications Acetaminophen (Tylenol) 650 mg PO Q6HR PRN PRN Reason: Mild Pain/Fever Stop: 05/12/18 14:17 Last Admin: 11/12/17 10:14 Dose: 650 mg Aspirin (Aspirin) 81 mg PO DAILY [facility] Stop: 05/13/18 09:01 Last Admin: 11/12/17 09:01 Dose: 81 mg Benzonatate (Tessalon) 100 mg PO TID PRN PRN Reason: Cough Stop: 05/12/18 14:23 Last Admin: 11/11/17 20:13 Dose: 100 mg Dextrose/Water (Dextrose 50% (Syg)) 25 ml IVP AD PRN PRN Reason: Hypoglycemia Stop: 05/12/18 14:20 Glucagon (Glucagen) 1 mg IM ONCE PRN PRN Reason: Hypoglycemia Stop: 05/12/18 14:20 Glucose (Gluctose) 15 gm PO ONCE PRN PRN Reason: Hypoglycemia Stop: 05/12/18 14:20 Glucose (Gluctose) 30 gm PO ONCE PRN PRN Reason: Hypoglycemia Stop: 05/12/18 14:20 Heparin Sodium (Porcine) (Heparin) 5,000 unit SQ Q12HCO FRANCK Stop: 05/12/18 18:01 Last Admin: 11/12/17 05:12 Dose: 5,000 unit Dextrose (Dextrose 5%) 1,000 mls @ 100 mls/hr IVC .Q10H PRN PRN Reason: HYPOGLYCEMIA Stop: 05/12/18 14:20 Insulin Human Lispro (Humalog) 0 units SQ HS FRANCK PRN Reason: Protocol Stop: 05/12/18 21:01 Last Admin: 11/11/17 20:08 Dose: 5 units Insulin Human Lispro (Humalog) 0 units SQ TIDAC FRANCK PRN Reason: Protocol Stop: 05/12/18 16:31 Last Admin: 11/12/17 11:17 Dose: 12 units Lisinopril (Zestril) 5 mg PO DAILY FRANCK PRN Reason: Protocol Stop: 05/13/18 16:46 Last Admin: 11/12/17 09:00 Dose: 5 mg Naloxone HCl (Narcan) 0.4 mg IVP Q2MIN PRN PRN Reason: SEE COMMENTS Stop: 05/12/18 14:17 Simvastatin (Zocor) 20 mg PO HS FRANCK PRN Reason: Protocol Stop: 05/13/18 21:01 Last Admin: 11/11/17 20:08 Dose: 20 mg Tramadol HCl (Ultram) 50 mg PO Q6HR PRN PRN Reason: Moderate Pain Stop: 05/12/18 14:17 Last Admin: 11/11/17 20:17 Dose: 50 mg - Imaging and Cardiology Stress Test: report reviewed - EKG Interpretation EKG results cardiology: personally reviewed, no diagnostic ischemia (Sinus tachycardia in the 100s with incomplete right bundle branch block) Consult Discharge Plan - Plan Instructions: Lisinopril (By mouth), Aspirin (By mouth), Simvastatin (By mouth) , Metformin (By mouth), Chest Pain (DC) Additional Instructions: Please follow up with Dr. Middleton in the next 7-10 days for a follow up visit and for medication refills. Take your medications exactly as directed. Start exercising slowly and modify your diet to an 1800 ADA diet Return to your normal activities as tolerated. You may return to work after you are cleared by your PCP. Check your blood sugar at least twice daily, once when you first get up and before you eat or drink anything. Take your blood sugar log to the dr appointment with you so Dr Middleton can look at it. Referrals: Brigid Middleton MD [Primary Care Provider] - 11/25/17 9:15 am Prescriptions: Aspirin 81 mg PO DAILY #30 tab.chew Lisinopril [Zestril] 5 mg PO DAILY #30 tablet Metformin HCl [Glucophage] 1,000 mg PO BID #60 tablet Simvastatin [Zocor] 20 mg PO HS #30 tablet <Rodrigo Macedo - Last Filed: 11/13/17 11:38> Date of Encounter: 11/13/17 - Attending Attestation I have personally performed a face to face evaluation on this patient. I have reviewed and agree with the care plan. History and Exam by me shows: Low risk, equivocal stress test. he has agreed to medical mgmt. and fu as outpt. Assessment and Plan Discussion w patient/family: The assessment and plan as outlined above was discussed with the patient and/or family members who expressed understanding and agreement. All questions were answered. Thank you for involving us in the care of your patient. Please call with any questions. History of Present Illness History of present illness: Mr. Marroquin is a 37 year old male All Systems Review: The remainder of the systems were reviewed and are negative Results 11/12/17 05:27 11/12/17 05:27
--- NOTE | 2017-11-12 16:03 | Discharge Summary ---
- NOTES TO OUTPATIENT PROVIDER Notes to Outpatient Provider: Pt was admitted for chest pain. Stress abnormal. Pt will follow with cardiology in the clinic after discharge, he has decided on medical management. Pt and I discussed his necessary lifestyle modifications including weight loss and diet changes. Pt has been started on fish oil and an ASA daily. Pt has also once again been started on Metformin 1000mg po bid for A1c of 9.7%. Orders not resulted at time of discharge: Pending orders 11/10/17 14:20 NM liza perf SPECT multi [NM] Routine 11/13/17 04:00 Basic Metabolic Panel AM 0400 Complete Blood Count [HEME] AM 0400 Date of Encounter: 11/12/17 Time of Encounter: 09:15 - Discharge Diagnosis (1) Chest pain Priority: Primary Status: Acute Assessment and Plan: Pt denies chest pain today. Troponin negative 3, EKG normal sinus rhythm with no ST changes. Stress test showed small sized,mild intensity, reversible inferior perfusion defect possibly due to ischemia. Patient with risk factors of obesity, hypertension, medication noncompliance. Cardiology saw pt, will follow with pt in clinic. Modify risk factors. Qualifiers: Chest pain type: unspecified Qualified Code(s): R07.9 - Chest pain, unspecified (2) Diabetes mellitus Priority: Secondary Status: Chronic Assessment and Plan: Pt is non-adherent to medication regimen. A1c 9.7%. Pt would benefit from diabetes education and lifestyle modifications. Metformin 1000mg po BID. Qualifiers: Diabetes mellitus type: type 2 Diabetes mellitus fdc insulin use: without terminal superintendent use Diabetes mellitus complication status: without complication Qualified Code(s): E11.9 - Type 2 diabetes mellitus without complications (3) HTN (hypertension) Priority: Secondary Status: Chronic Assessment and Plan: Blood pressure remains well controlled in the inpatient setting. Patient not adherent with home medications. He was to be taking lisinopril, he has not been taking. We will restart low-dose, monitor, some patient home with prescription.We have discussed the importance of lifestyle modifications as well as adherence to medication regimen. Lisinopril 5mg po daily Qualifiers: Hypertension type: essential hypertension Qualified Code(s): I10 - Essential (primary) hypertension (4) Hyperlipidemia Priority: Secondary Status: Chronic Assessment and Plan: Triglycerides are 743, cholesterol within normal limits, LDL and VLDL were not completed due to elevation of triglycerides. Simvastatin 20 mg by mouth at bedtime. Again, have encourged him to take as directed. Qualifiers: Hyperlipidemia type: pure hypercholesterolemia Qualified Code(s): E78.00 - Pure hypercholesterolemia, unspecified; E78.0 - Pure hypercholesterolemia (5) Morbid obesity Priority: Secondary Status: Acute Assessment and Plan: Chronic. We have discussed lifestyle modifications. Could benefit from increased education and encouragement. Hospital course: Mr. Marroquin is a 37 year old male with PMH of DM, HTN, HLD, morbid obesity. Pt presented to the eD with c/o chest pain in left chest, also with URI symptoms. EKG NSR without ST changes, troponins negative. Chest xray negative. Pt's stress showed small sized, mild intensity, reversible inferior perfusion defect , possibly due to ischemia. Pt was evaluated by cardiology and he will follow up in the office. Pt has been non-adherent to medication regimen in the past. A1c 9.7%, he has been started on Metformin 1000mg po BID, Lisinopril 5mg po daily, ASA 81mg daily and Statin 20mg po qhs. Pt is stable and appropriate for discharge. Discharge discussed with: patient, family - Time Spent with Patient Total time spent providing and/or coordinating discharge services: Less than 30 minutes - Discharge Medications Prescriptions: Aspirin 81 mg PO DAILY #30 tab.chew Lisinopril [Zestril] 5 mg PO DAILY #30 tablet Metformin HCl [Glucophage] 1,000 mg PO BID #60 tablet Simvastatin [Zocor] 20 mg PO HS #30 tablet Home Medications: Aspirin 81 mg PO DAILY #30 tab.chew 11/12/17 [Rx] Lisinopril [Zestril] 5 mg PO DAILY #30 tablet 11/12/17 [Rx] Metformin HCl [Glucophage] 1,000 mg PO BID #60 tablet 11/12/17 [Rx] Simvastatin [Zocor] 20 mg PO HS #30 tablet 11/12/17 [Rx] Allergies/Adverse Reactions: 3 Allergy/AdvReac Type Severity Reaction Status Date / Time No Known Allergies Allergy Verified 07/26/15 20:22 Date of admission: 11/10/17 11:46 Primary care physician: Brigid Middleton Consults: 11/12/17 13:52 Consult to Cardiology [CONS] Routine Comment: Consulting Provider: Cardiology Billie Reason for Consult: Abnormal stres test Time Notified: 13:52 Call Completed: Yes Discharging clinician: Prudence Tay Anticipated date of discharge: 11/12/17 - Constitutional Vitals: Temp Pulse Resp BP Pulse Ox 97.6 F 100 16 122/86 100 11/12/17 14:26 11/12/17 14:26 11/12/17 14:26 11/12/17 14:11/12/17 14:26 General appearance: Present: cooperative, A&O X 3, morbidly obese, pleasant, no acute distress, answers questions appropriately - Head Head exam: Present: atraumatic, normal inspection, normocephalic - Eye Eye exam: Present: normal appearance, conjuntiva pink, sclera anicteric - Neck Neck exam general surgery: Present: supple, trachea midline. Absent: lymphadenopathy - Respiratory Respiratory exam: Present: CTAB. Absent: accessory muscle use, rales, rhonchi, wheezes - Cardiovascular Cardiovascular exam: Present: RRR, +S1, +S2. Absent: diastolic murmur, gallop, rubs, systolic murmur - GI/Abdominal GI/Abdominal exam: Present: normal bowel sounds, soft. Absent: distended, hepatomegaly, tenderness - Extremities Exam Extremities exam: Present: normal capillary refill, normal inspection, warm, radial pulses palpable and symmetrical. Absent: calf tenderness, cyanotic, pedal edema, tenderness - Neurological Exam Neurological exam: Present: alert, oriented X3, no focal deficits. Absent: facial droop, speech deficit - Skin Skin exam: Present: dry, intact, normal color, warm. Absent: rash - Patient Status Disposition: Home, Self-Care Condition: Good Functional capacity at discharge: independent ambulation Overall status at discharge: patient is back to baseline - Discharge Instructions Follow Up With: Brigid Middleton MD [Primary Care Provider] - 11/25/17 9:15 am Additional Instructions: Please follow up with Dr. Middleton in the next 7-10 days for a follow up visit and for medication refills. Take your medications exactly as directed. Start exercising slowly and modify your diet to an 1800 ADA diet Return to your normal activities as tolerated. You may return to work after you are cleared by your PCP. Check your blood sugar at least twice daily, once when you first get up and before you eat or drink anything. Take your blood sugar log to the dr appointment with you so Dr Middleton can look at it. - Diet and Activity Activity: increase activity as tolerated Diet: diabetic diet, low fat, low cholesterol, low salt diet
--- NOTE | 2017-11-13 17:38 | Electrocardiograph Report ---
[place] [id number] Test Date: 2017-11-10 Pat Name: Michele Marroquin Department: 104 Room: 3B Gender: M Cv Rn: PUMA : 1980 Requested By: Alfonso Hurtado Order Number: [id number] Reading MD: Janki Macedo Measurements Intervals [place] Rate: 111 P: 24 [place]: 128 QRS: 12 QRSD: 105 T: 25 QT: 304 QTc: 370 Interpretive Statements SINUS TACHYCARDIA INCOMPLETE RIGHT BUNDLE BRANCH BLOCK [90+ ms QRS DURATION, TERMINAL R IN V1/V2, 40+ ms S IN I/aVL/V4/V5/V6] ABNORMAL RHYTHM ECG Electronically Signed On 11-13-2017 17:36:55 EDT by Janki Macedo
== END 2017-11-12 16:38 | disposition home or self-care (01) ==
LOC: 3BNU 09:02 → EMEROO 09:02 → 3BNU 12:20
PROVIDERS: ADMIT Student in an Organized Health Care Education/Training Program; ATTEND Pediatrics